=== PATIENT | female | born 1980 | race Caucasian/White ===

== ENCOUNTER 2016-10-11 06:56 | Day surgery (SDC) | payer BC ==
[~2016-10-11 06:56] MED LIST: Buffered Lidocaine 0.9% SYRIN* 5 ML/SYR SYRINGE INTRADERM ONE; Buffered Lidocaine 0.9% SYRIN* 5 ML/SYR SYRINGE ONE
[2016-10-11] MEDS ORDERED: Midazolam* 1 MG/ML 2 ML VIAL (2 MG) ONE ×2 (07:35→08:02)
[2016-10-11] MEDS ORDERED: Chloroprocaine 2%* 20 ML VIAL ONE (07:35)
[2016-10-11] MEDS ORDERED: fentaNYL* 50 MCG/ML 2 ML VIAL (100 MCG VIAL) ONE (07:35)
[2016-10-11] MEDS ORDERED: Misoprostol TAB* 200 MCG ONE (08:15)
[2016-10-11] MEDS ORDERED: oxyCODONE/Acetamin 5/325 MG* TAB PO PRN (08:31)
[2016-10-11] MEDS ORDERED: Ketorolac INJ* 30 MG/ML 1 ML VIAL IV PRN (08:31)
[2016-10-11] MEDS ORDERED: fentaNYL* 50 MCG/ML 2 ML VIAL (100 MCG VIAL) IV PRN (08:31)
[2016-10-11 10:07] VITALS: BP 105/60
--- NOTE | 2016-10-11 18:58 | OP ---
DATE OF OPERATION: 10/11/16 [facility] DATE OF : 76 SURGEON: Abigail Conrad MD. ANESTHESIOLOGIST: Dr. Henrik Silver. ANESTHESIA: Spinal with sedation. PRE-OP DIAGNOSIS: Missed at 9 weeks and 1 day. POST-OP DIAGNOSIS: Missed at 9 weeks and 1 day. OPERATIVE PROCEDURE: Dilation, evacuation and curettage. ESTIMATED BLOOD LOSS: 100 cc. URINE OUTPUT: 300 cc of clear yellow urine. FLUIDS: 700 cc of crystalloid. FINDINGS: Revealed intrauterine contents consistent with products of conception. SPECIMEN: Intrauterine contents. COMPLICATIONS: None apparent. DISPOSITION: Stable to recovery room. DESCRIPTION OF PROCEDURE: The patient was placed in dorsal lithotomy position after undergoing spinal anesthesia, legs were placed in candy cane stirrups with SCD's on, and the perineum and vagina were prepped and draped in a sterile standard fashion. The patient was identified with universal protocol for correct position, patient and procedure. Self-cath was inserted through the ureter for drainage of clear yellow urine. Self-cath was removed. Sterile speculum was inserted. Cervix was visualized and grasped on the anterior lip with a single-tooth tenaculum and dilated to a #11 Hegar dilator. A 11 curved suction curette was then placed for complete evacuation of uterine contents. Sharp curettage was performed confirming complete removal of intrauterine contents with cry of uterus in all 4 quadrants. Single-tooth tenaculum was removed, sterile speculum was removed. Misoprostol 800 mcg was inserted intravaginally. The patient was returned to dorsal lithotomy position and then taken to recovery room in stable condition. [id number]/[facility] #: [id number] [facility]
== END 2016-10-11 10:07 | disposition home or self-care (01) ==
LOC: OR 06:56
PROVIDERS: ATTEND Obstetrics & Gynecology
DX: O02.1 Missed abortion (principal)
CPT/HCPCS: 88305; A9270-GY; J2250; J2400; J3010

== ENCOUNTER 2018-07-30 18:06 | Emergency (ER) | payer BC ==
--- NOTE | 2018-07-30 18:13 | UC ---
Lower Extremity/Ankle HPI - HPI Summary HPI Summary: 38 y/o female presents to the urgent care c/o Rt foot pain localized in the ball of her foot for the past week. Pt reports she has been biking and she thinks she over used. She is concerned about Pt c/o pain R ball of foot. States from overuse that started last week. - History of Current Complaint Stated Complaint: R FOOT INJURY Time Seen by Provider: 07/30/18 18:09 Hx Obtained From: Patient ?: No Onset/Duration: Gradual Onset, Lasting Weeks - 1 week, Still Present, Worse Since - today standing an trigguered throbing pain Severity Initially: Mild Severity Currently: Moderate Pain Intensity: 1 Pain Scale Used: 0-10 Numeric Aggravating Factor(s): Standing, Ambulation Alleviating Factor(s): Rest, OTC Meds Able to Bear Weight: Yes - Risk Factors Gout Risk Factors: Negative DVT Risk Factors: Negative Septic Arthritis Risk Factor: Negative - Allergies/Home Medications Allergies/Adverse Reactions: Allergies Allergy/AdvReac Type Severity Reaction Status Date / Time No Known Allergies Allergy Verified 07/30/18 18:12 Home Medications: Home Medications NK [No Home Medications Reported] 07/30/18 [History Confirmed 07/30/18] PMH/Surg Hx/FS Hx/Imm Hx Previously Healthy: Yes - Pt denies PMHX - Surgical History Surgical History: Yes Surgery Procedure, Year, and Place: TENDON REPAIR RIGHT [place]KLE, [place]. [facility] REMOVED FROM [facility] [place] [facility] [place] - Family History Known Family History: Positive: None - Pt denies FMHX - Social History Occupation: Employed Full-time Lives: With Family Alcohol Use: Weekly Alcohol Amount: 1-2 WEEK Substance Use Type: None Smoking Status (MU): Never Smoked Tobacco Have You Smoked in the Last Year: No - Immunization History Most Recent Influenza Vaccination: fall 2014 Most Recent Tetanus Shot: 09/16/14 Most Recent Pneumonia Vaccination: unsure Review of Systems All Other Systems Reviewed And Are Negative: Yes Constitutional: Positive: Negative Skin: Positive: Other - mild soft tissue swelling over the first RT MTPJ Eyes: Positive: Negative ENT: Positive: Negative Respiratory: Positive: Negative Cardiovascular: Positive: Negative Gastrointestinal: Positive: Negative Genitourinary: Positive: Negative Motor: Positive: Negative Neurovascular: Positive: Negative Musculoskeletal: Positive: Other: - RT MTPJ pain s/p overuse injury Neurological: Positive: Negative Psychological: Positive: Negative Is Patient Immunocompromised?: No Physical Exam - Summary Physical Exam Summary: Vital Signs Reviewed: Yes General : well developed, well nourished female w/o any apparent pain distress Eyes: Positive: Conjunctiva Clear - PERRLA, EOMI ENT: Positive: Normal ENT inspection, Hearing grossly normal, Pharynx normal, TMs normal Neck: Positive: Supple, Nontender, No Lymphadenopathy Respiratory: Positive: Chest non-tender, Lungs clear, Normal breath sounds, No respiratory distress Cardiovascular: Positive: RRR, No Murmur, Pulses Normal Abdomen Description: Positive: Nontender, No Organomegaly, Soft. Negative: CVA Tenderness (R), CVA Tenderness (L) Bowel Sounds: Positive: Present Musculoskeletal: Positive: Strength Intact, ROM Intact, No Edema, Rt Foot/Toes : Pt is able to bear weight but ambulate w/o limping. RT foot :No surface trauma, ecchymosis, erythema, lesions, ulcers or break in skin integrity. The R foot is without obvious asymmetry or deformity when compared to the L foot. No bony step-off, positive tenderness to palpation over first MTPJ on plantar side w/ mild soft tissue swelling. no tenderness of hindfoot, FROM of ankle and foot. Distal motor and neurovascular status are intact. Neurological Exam: Normal Psychological Exam: Normal Skin Exam: Normal Triage Information Reviewed: Yes Lower Extremity Course/Dx - Differential Dx/Diagnosis Differential Diagnosis/HQI/PQRI: Arthritis, Contusion, Dislocation, Fracture ( Closed), Sprain, Strain, Tendonitis Provider Diagnosis: Right foot pain, Fracture of sesamoid bone of foot, closed Discharge - Sign-Out/Discharge Documenting (check all that apply): Patient Departure - D/C home All imaging exams completed and their final reports reviewed: Yes - Discharge Plan Condition: Stable Disposition: HOME Patient Education Materials: Tendinitis (ED) Referrals: Abigail Conrad MD [Primary Care Provider] - 2 Days Sonia Busby MD [Medical Doctor] - 1 Day Additional Instructions: 1-Please take Ibuprofen PO q6-8hrs prn after meals as directed to alleviate pain and swelling. 2-Please apply ice, keep your foot immobilized with the Andrae bandage and CAM boot. Avoid strenuous exercise or standing for long periods of time 3- Please f/u with your Orthopedic DR Busby in 1-2 days for further evaluation and treatment. - Billing Disposition and Condition Condition: STABLE Disposition: Home
[2018-07-30 18:18] VITALS: BP 109/66
== END 2018-07-30 19:17 | disposition home or self-care (01) ==
LOC: UCEAST 18:06
DX: S92.811A Other fracture of right foot, initial encounter for closed fracture (principal); X50.3XXA Overexertion from repetitive movements, initial encounter; Y93.55 Activity, bike riding; Y92.9 Unspecified place or not applicable; Y99.8 Other external cause status
CPT/HCPCS: 99202; G0463